=== PATIENT | female | born 2000 | race Caucasian/White ===

== ENCOUNTER 2020-12-16 12:15 | Emergency (ER) | payer OTHER ==
[~2020-12-16] VITALS: Ht 157.4 cm; Wt 99.8 kg
== END 2020-12-16 16:52 | disposition left against medical advice (07) ==
LOC: ED 12:15
DX: J02.9 Acute pharyngitis, unspecified (principal); K13.79 Other lesions of oral mucosa; Z53.21 Procedure and treatment not carried out due to patient leaving prior to being seen by health care provider